=== PATIENT | male | born 1995 | race Caucasian/White ===

== ENCOUNTER 2016-11-23 15:01 | Emergency (ER) | payer MEDICAID ==
[~2016-11-23] VITALS: Ht 175.3 cm; Wt 158.8 kg
[2016-11-23 17:06] VITALS: BP 106/63
== END 2016-11-23 17:06 | disposition home or self-care (01) ==
LOC: ED 15:01
DX: S60.221A Contusion of right hand, initial encounter (principal); H11.31 Conjunctival hemorrhage, right eye; E11.9 Type 2 diabetes mellitus without complications; Z79.4 Long term (current) use of insulin; Z79.84 Long term (current) use of oral hypoglycemic drugs; X58.XXXA Exposure to other specified factors, initial encounter; Y93.89 Activity, other specified; Y99.8 Other external cause status; Y92.89 Other specified places as the place of occurrence of the external cause
CPT/HCPCS: Q0092

== ENCOUNTER 2016-12-06 15:28 | Emergency (ER) | payer MEDICAID ==
[~2016-12-06] VITALS: Ht 172.7 cm; Wt 161.0 kg
[2016-12-06 15:36] VITALS: BP 132/86
== END 2016-12-06 16:42 | disposition home or self-care (01) ==
LOC: ED 15:28
DX: S29.011A Strain of muscle and tendon of front wall of thorax, initial encounter (principal); E66.9 Obesity, unspecified; E11.9 Type 2 diabetes mellitus without complications; W17.89XA Other fall from one level to another, initial encounter; Y93.89 Activity, other specified; Y99.8 Other external cause status; Y92.89 Other specified places as the place of occurrence of the external cause

== ENCOUNTER 2018-02-05 20:12 | Emergency (ER) | payer MEDICAID ==
[~2018-02-05] VITALS: Ht 175.3 cm; Wt 173.3 kg
[2018-02-05 20:28] VITALS: BP 154/79; Ht 175.3 cm; Wt 173.3 kg
== END 2018-02-05 22:04 | disposition home or self-care (01) ==
LOC: ED 20:12
DX: M72.2 Plantar fascial fibromatosis (principal); E11.9 Type 2 diabetes mellitus without complications
CPT/HCPCS: J1885

== ENCOUNTER 2018-04-07 18:12 | Emergency (ER) | payer MEDICAID ==
[~2018-04-07] VITALS: Ht 172.7 cm; Wt 169.2 kg
[2018-04-07 18:27] VITALS: Ht 172.7 cm; Wt 169.2 kg
[2018-04-07 20:47] VITALS: BP 141/91
== END 2018-04-07 20:48 | disposition home or self-care (01) ==
LOC: ED 18:12
DX: S61.213A Laceration without foreign body of left middle finger without damage to nail, initial encounter (principal); S61.211A Laceration without foreign body of left index finger without damage to nail, initial encounter; J45.909 Unspecified asthma, uncomplicated; E11.9 Type 2 diabetes mellitus without complications; W23.1XXA Caught, crushed, jammed, or pinched between stationary objects, initial encounter; Y93.89 Activity, other specified; Y92.89 Other specified places as the place of occurrence of the external cause; Y99.8 Other external cause status
CPT/HCPCS: J2001

== ENCOUNTER 2018-04-20 21:14 | Emergency (ER) | payer MEDICAID ==
[2018-04-20 21:28] VITALS: Ht 175.3 cm
[2018-04-20 22:15] VITALS: BP 131/67
== END 2018-04-20 22:15 | disposition home or self-care (01) ==
LOC: ED 21:14
DX: S61.210D Laceration without foreign body of right index finger without damage to nail, subsequent encounter (principal); S61.213D Laceration without foreign body of left middle finger without damage to nail, subsequent encounter; E11.9 Type 2 diabetes mellitus without complications; X58.XXXD Exposure to other specified factors, subsequent encounter

== ENCOUNTER 2018-07-13 23:43 | Emergency (ER) | payer MEDICAID ==
[~2018-07-13] VITALS: Ht 175.3 cm; Wt 162.8 kg
[2018-07-13 23:48] VITALS: Ht 175.3 cm; Wt 162.8 kg
[2018-07-14 01:30] VITALS: BP 134/67
== END 2018-07-14 01:31 | disposition home or self-care (01) ==
LOC: ED 23:43
DX: S89.82XA Other specified injuries of left lower leg, initial encounter (principal); E11.9 Type 2 diabetes mellitus without complications; W22.8XXA Striking against or struck by other objects, initial encounter; Y93.89 Activity, other specified; Y92.89 Other specified places as the place of occurrence of the external cause; Y99.8 Other external cause status
CPT/HCPCS: J1885; Q0092

== ENCOUNTER 2018-12-09 10:04 | Emergency (ER) | payer MEDICAID ==
[~2018-12-09] VITALS: Ht 175.3 cm; Wt 164.2 kg
[2018-12-09 10:36] VITALS: Ht 175.3 cm; Wt 164.2 kg
[2018-12-09 11:56] LABS: CALCIUM 9.4 mg/dL (8.5-10.1); CARBON DIOXIDE 25.1 mmol/L (21-32); CHLORIDE SERUM 101 mmol/L (98-107); CREATININE SERUM 0.9 mg/dL (0.7-1.3); GFR1 > 60 mL/min; GLUCOSE SERUM 349 mg/dL (74-106); POTASSIUM SERUM 3.8 mmol/L (3.5-5.1); SODIUM SERUM 135 mmol/L (136-145)
[2018-12-09 12:00] LABS: ALBUMIN 3.6 g/dL (3.4-5.0); ALKALINE PHOSPHATASE 125 U/L (46-116); ALT/SGPT 43 U/L (16-63); AST/SGOT 18 U/L (15-37); BILIRUBIN TOTAL 0.54 mg/dL (0.20-1.00); TOTAL PROTEIN, SERUM 7.1 g/dL (6.4-8.2)
[2018-12-09 12:58] LABS: BASOPHIL % 0.6 % (0-2); PLATELET COUNT 198 x10^3mcL (130-400); RED CELL DISTRIBUTION WIDTH 12.3 % (11.5-14.5)
[2018-12-09 14:16] VITALS: BP 109/62
== END 2018-12-09 14:16 | disposition home or self-care (01) ==
LOC: ED 10:04
PROVIDERS: Emergency Medicine
DX: R07.9 Chest pain, unspecified (principal); E11.65 Type 2 diabetes mellitus with hyperglycemia
CPT/HCPCS: 85378; J1885; J7030

== ENCOUNTER 2019-01-22 12:46 | Emergency (ER) | payer MEDICAID ==
[~2019-01-22] VITALS: Ht 175.3 cm; Wt 162.8 kg
[2019-01-22 12:53] VITALS: Ht 175.3 cm; Wt 162.8 kg
[2019-01-22 13:47] LABS: BASOPHIL % 0.4 % (0-2); PLATELET COUNT 223 x10^3mcL (130-400); RED CELL DISTRIBUTION WIDTH 12.2 % (11.5-14.5)
[2019-01-22 14:03] LABS: CALCIUM 8.8 mg/dL (8.5-10.1); CARBON DIOXIDE 27.3 mmol/L (21-32); CHLORIDE SERUM 102 mmol/L (98-107); CREATININE SERUM 0.7 mg/dL (0.7-1.3); GFR1 > 60 mL/min; GLUCOSE SERUM 307 mg/dL (74-106); SODIUM SERUM 138 mmol/L (136-145)
[2019-01-22 14:07] LABS: ALBUMIN 3.6 g/dL (3.4-5.0); ALKALINE PHOSPHATASE 99 U/L (46-116); ALT/SGPT 44 U/L (16-63); AST/SGOT 19 U/L (15-37); BILIRUBIN TOTAL 0.7 mg/dL (0.20-1.00); LIPASE 76 IU/L (73-393)
[2019-01-22 14:31] VITALS: BP 116/54
== END 2019-01-22 14:31 | disposition home or self-care (01) ==
LOC: ED 12:46
PROVIDERS: Emergency Medicine
DX: E11.65 Type 2 diabetes mellitus with hyperglycemia (principal); Z76.0 Encounter for issue of repeat prescription
CPT/HCPCS: 82962; J2405; J7030

== ENCOUNTER 2019-02-06 10:57 | Emergency (ER) | payer MEDICAID ==
[~2019-02-06] VITALS: Ht 175.3 cm; Wt 163.3 kg
[2019-02-06 11:01] VITALS: Ht 175.3 cm; Wt 163.3 kg
[2019-02-06 11:52] LABS: BASOPHIL % 1.1 % (0-2); PLATELET COUNT 211 x10^3mcL (130-400); RED CELL DISTRIBUTION WIDTH 12.6 % (11.5-14.5)
[2019-02-06 12:09] LABS: CALCIUM 9.4 mg/dL (8.5-10.1); CARBON DIOXIDE 26.6 mmol/L (21-32); CHLORIDE SERUM 100 mmol/L (98-107); CREATININE SERUM 0.9 mg/dL (0.7-1.3); GFR1 > 60 mL/min; GLUCOSE SERUM 330 mg/dL (74-106); POTASSIUM SERUM 4.7 mmol/L (3.5-5.1); SODIUM SERUM 137 mmol/L (136-145)
[2019-02-06 12:13] LABS: ALBUMIN 3.8 g/dL (3.4-5.0); ALKALINE PHOSPHATASE 128 U/L (46-116); ALT/SGPT 39 U/L (16-63); AST/SGOT 12 U/L (15-37); BILIRUBIN TOTAL 0.56 mg/dL (0.20-1.00); LIPASE 79 IU/L (73-393); TOTAL PROTEIN, SERUM 7.3 g/dL (6.4-8.2)
[2019-02-06 12:32] LABS: microscopic required? NO
[2019-02-06 12:47] LABS: urine erythrocyte NEGATIVE (NEGATIVE)
[2019-02-06 14:08] VITALS: BP 129/70
== END 2019-02-06 14:08 | disposition home or self-care (01) ==
LOC: ED 10:57
PROVIDERS: Emergency Medicine
DX: R10.10 Upper abdominal pain, unspecified (principal); R11.2 Nausea with vomiting, unspecified; R19.7 Diarrhea, unspecified; E11.9 Type 2 diabetes mellitus without complications
CPT/HCPCS: J7030; Q0162

== ENCOUNTER 2019-03-20 13:50 | Emergency (ER) | payer MEDICAID ==
[~2019-03-20] VITALS: Ht 175.3 cm; Wt 162.8 kg
[2019-03-20 14:08] VITALS: Ht 175.3 cm; Wt 162.8 kg
[2019-03-20 16:17] VITALS: BP 137/77
== END 2019-03-20 16:17 | disposition home or self-care (01) ==
LOC: ED 13:50
DX: S86.912A Strain of unspecified muscle(s) and tendon(s) at lower leg level, left leg, initial encounter (principal); E11.9 Type 2 diabetes mellitus without complications; E66.01 Morbid (severe) obesity due to excess calories; X50.3XXA Overexertion from repetitive movements, initial encounter; Y93.89 Activity, other specified; Y92.89 Other specified places as the place of occurrence of the external cause; Y99.8 Other external cause status

== ENCOUNTER 2019-07-12 09:49 | Emergency (ER) | payer MEDICAID ==
[~2019-07-12] VITALS: Ht 172.7 cm; Wt 162.4 kg
[2019-07-12 10:01] VITALS: Ht 172.7 cm; Wt 162.4 kg
[2019-07-12 11:23] VITALS: BP 142/89
== END 2019-07-12 11:23 | disposition home or self-care (01) ==
LOC: ED 09:49
DX: J11.1 Influenza due to unidentified influenza virus with other respiratory manifestations (principal); E11.9 Type 2 diabetes mellitus without complications

== ENCOUNTER 2020-06-23 10:22 | Emergency (ER) | payer MEDICAID, SELFPAY ==
[~2020-06-23] VITALS: Ht 175.3 cm; Wt 158.8 kg
[2020-06-23 10:27] VITALS: BP 135/83; Ht 175.3 cm; Wt 158.8 kg
== END 2020-06-23 11:25 | disposition home or self-care (01) ==
LOC: ED 10:22
DX: U07.1 COVID-19 (principal); E11.9 Type 2 diabetes mellitus without complications
CPT/HCPCS: U0003